=== PATIENT | male | born 1965 | race Caucasian/White ===

== ENCOUNTER → 2024-04-30 15:10 | Outpatient (CLI) | payer BC, SELFPAY ==
--- NOTE | 2024-04-30 15:12 | DI.MRI.S_ITS ---
PROCEDURE: MR HAND LT WO CON INDICATIONS: Pain in left hand TECHNIQUE: Noncontrast coronal T1 spin echo and T2 fast spin echo with fat saturation, axial proton density fast spin echo and T2 fast spin echo with fat saturation, sagittal T1 spin echo and STIR through the hand and fingers. COMPARISON: None. FINDINGS: Image quality: Excellent. Bones: Screw fixation of the 2nd proximal phalangeal base, creates artifacts and limits evaluation. Mild degenerative changes of the 2nd metacarpophalangeal joint with mild subchondral cystic changes and marrow edema in the 2nd metacarpal head. Mild subchondral marrow edema in the radial aspect of the 3rd metacarpal head, nonspecific and may be reactive. Moderate subchondral cystic changes within the capitate, nonspecific. Mild subchondral marrow edema of the distal radius, degenerative. Ulnar positive variance with likely central disc perforation of the triangular fibrocartilage, incompletely evaluated. 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 No acute fracture or dislocation. Interphalangeal joint(s): The accessory and proper collateral ligaments appear intact. The volar plate demonstrates normal morphology. The extensor central slips appear intact on sagittal images. Metacarpophalangeal joint(s): Sprain of the radial and lateral collateral ligament at the 2nd metacarpal phalangeal joint. Sprain of the radial collateral ligament at the 3rd metacarpophalangeal joint. Extensor apparatus: The central slips insert normally on the middle phalangeal base. The conjoint and terminal tendons insert normally on the distal phalangeal bases. More proximal portions of the extensor tendons also appear normal. Flexor apparatus: The flexor digitorum superficialis and profundus tendons both appear intact. All annular and cruciform pulleys appear intact, without adjacent soft tissue edema. Soft tissues: There is a T2 hyperintense, T1 intermediate, well-circumscribed lesion measuring 6 mm radial, and volar to the 2nd proximal phalangeal base, superficial to the flexor tendon, resulting in mild mass effect on the 2nd flexor tendon. IMPRESSION: 1. Screw fixation of the 2nd proximal interphalangeal base. 6 mm lesion radial and volar to the 2nd proximal phalangeal base, incompletely characterized. Recommend further evaluation with targeted ultrasound or MR finger with intravenous contrast. 2. Mild degenerative changes of the 2nd metacarpophalangeal joint. 3. Mild subchondral marrow edema of the 3rd metacarpal head with sprain of the subjacent radial collateral ligament, favoring reactive. 4. 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 5. Moderate subchondral cystic changes within the capitate, nonspecific. Dictated by: Alla Beltrán M.D. on 04/30/2024 at 16:14 Approved by: Alla Beltrán M.D. on 04/30/2024 at 16:26
== END ==
PROVIDERS: PCP Internal Medicine; Referring Provider Orthopaedic Surgery; Visit Provider Orthopaedic Surgery
DX: S63.651A Sprain of metacarpophalangeal joint of left index finger, initial encounter (principal); S63.653A Sprain of metacarpophalangeal joint of left middle finger, initial encounter; M79.642 Pain in left hand
CPT/HCPCS: 73218